=== PATIENT | female | born 1965 | race Two or more races ===

== ENCOUNTER 2020-02-15 10:30 | Outpatient (CLI) | payer OTHER | END 2020-02-15 10:44 | disposition home or self-care (01) | LOC: NUCLEAR 10:30 | PROVIDERS: ATTEND Internal Medicine | DX: I87.2 Venous insufficiency (chronic) (peripheral) (principal); M79.604 Pain in right leg; M79.605 Pain in left leg ==

== ENCOUNTER → 2020-03-27 | Outpatient (CLI) | payer OTHER | END | disposition home or self-care (01) | LOC: MRI 10:52 | PROVIDERS: ATTEND Thoracic Surgery (Cardiothoracic Vascular Surgery) | DX: M25.562 Pain in left knee (principal) | CPT/HCPCS: 73721 ==